=== PATIENT | male | born 1990 | race Caucasian/White ===

== ENCOUNTER 2018-04-20 11:12 | Emergency (ER) | payer OTHER ==
[~2018-04-20] VITALS: Ht 190.5 cm; Wt 95.3 kg
[~2018-04-20 11:12] MED LIST: HYDROCODONE-AP1 EAC6 PO; IBUPROFEN 800800 MG PO; MEDROLDOSEPACK PO; ROBAXIN 750 MG750 M1 PO
[2018-04-20] MEDS ORDERED: AUGMENTIN 875-1 EACH PO (11:26)
[2018-04-20 12:05] VITALS: BP 130/65
[2018-04-21 12:05] LABS: HEPATITIS B SURFACE AG Negative (Negative)
== END 2018-04-20 12:06 | disposition home or self-care (01) ==
LOC: M.ERS 11:12
PROVIDERS: Physician Assistant
DX: S61.252A Open bite of right middle finger without damage to nail, initial encounter (principal); S61.254A Open bite of right ring finger without damage to nail, initial encounter; W50.3XXA Accidental bite by another person, initial encounter; Y93.89 Activity, other specified; Y92.89 Other specified places as the place of occurrence of the external cause; Y99.8 Other external cause status